=== PATIENT | male | born 1960 | race Caucasian/White ===

== ENCOUNTER → 2023-10-05 14:41 | Outpatient (REF) | payer OTHER, SELFPAY | LOC: HWRAD 14:41 | PROVIDERS: ATTENDING PHYSICIAN Chiropractor | DX: M99.01 Segmental and somatic dysfunction of cervical region (principal); M99.02 Segmental and somatic dysfunction of thoracic region; M54.11 Radiculopathy, occipito-atlanto-axial region; M54.13 Radiculopathy, cervicothoracic region | CPT/HCPCS: 72052; 72070 ==

== ENCOUNTER → 2024-06-21 15:56 | Outpatient (REF) | payer OTHER, SELFPAY | LOC: HWRAD 15:56 | PROVIDERS: ATTENDING PHYSICIAN Registered Nurse Ambulatory Care | DX: M25.512 Pain in left shoulder (principal) | CPT/HCPCS: 72040; 73030 ==

== ENCOUNTER → 2024-08-02 14:57 | Outpatient (REF) | payer OTHER, SELFPAY | LOC: HWRAD 14:57 | PROVIDERS: ATTENDING PHYSICIAN Family Medicine | DX: I65.21 Occlusion and stenosis of right carotid artery (principal); I10 Essential (primary) hypertension; E78.5 Hyperlipidemia, unspecified | CPT/HCPCS: 93880 ==